=== PATIENT | female | born 2000 ===

== ENCOUNTER 2018-11-09 23:56 | Emergency (ER) | payer BC ==
[2018-11-10] MEDS ORDERED: NS 0.9% 1000 ML** 1,000 ML IV ONE
[2018-11-10] MEDS ORDERED: Ondansetron INJ* 2 MG/ML VIAL IV ONE
[2018-11-10] MEDS ORDERED: Ondansetron INJ* 2 MG/ML VIAL ONE (00:02)
--- NOTE | 2018-11-10 01:18 | ED ---
Substance Abuse/Use - HPI Summary HPI Summary: This patient is a 18 year old female brought in by ambulance to [facility] with a chief complaint of EtOH intoxication. Patient states that she was drinking red wine tonight. Patient is intoxicated and presents with vomit on her lips. Patient additionally reports nausea, vomiting. Level 5 Caveat: AMS - History Of Current Complaint Chief Complaint: EDSubstanceAbuse Stated Complaint: ETOH Time Seen by Provider: 11/10/18 00:01 Hx Obtained From: Patient, EMS Hx From Patient Unobtainable Due To: Altered Mental Status Ingestion History: Type/Name Of Drug - EtOH Timing Of Abuse: Binge Use Severity Initially: Moderate Character: Stuporous Associated Signs And Symptoms: Nausea, Vomiting - Allergies/Home Medications Allergies/Adverse Reactions: Allergies Allergy/AdvReac Type Severity Reaction Status Date / Time No Known Allergies Allergy Verified 11/10/18 00:29 Home Medications: Home Medications Fluoxetine HCl 25 mg PO DAILY 11/10/18 [History Confirmed 11/10/18] PMH/Surg Hx/FS Hx/Imm Hx Previously Healthy: Yes - PMHx limited by Level 5 Caveat: AMS Opthamlomology History: Denies: Hx Legally Blind EENT History: Denies: Hx Deafness Infectious Disease History: Unable to Obtain/Confirm Infectious Disease History: Denies: Traveled Outside the [place] in Last 30 Days - Family History Known Family History: Negative: Hypertension - Social History Occupation: Student Alcohol Use: Occasionally Substance Use Type: Reports: None Smoking Status (MU): Never Smoked Tobacco Review of Systems Negative: Fever Positive: Vomiting, Nausea All Other Systems Reviewed And Are Negative: No - Comments Additional Review of Systems Comments: ROS limited by Level 5 Caveat: AMS Physical Exam - Summary Physical Exam Summary: Appearance: Well-appearing, Well-nourished, lying in bed comfortable Skin: Warm, dry, no obvious rash Eyes: sclera anicteric, no conjunctival pallor ENT: mucous membranes moist Neck: deferred Respiratory: No signs of respiratory distress Cardiovascular: Appears well perfused, pulses are nml Physical Exam limited by Level 5 Caveat: AMS Triage Information Reviewed: Yes Vital Signs On Initial Exam: Initial Vitals Temp Pulse Resp BP Pulse Ox 97.4 F 95 20 113/72 100 11/10/18 00:03 11/10/18 00:03 11/10/18 00:03 11/10/18 00:03 11/10/18 00:03 Vital Signs Reviewed: Yes Completion Of Physical Exam Limited Due To: Altered Mental Status, Level 5 Diagnostics - Vital Signs Vital Signs Temp Pulse Resp BP Pulse Ox 11/10/18 00:03 97.4 F 95 20 113/72 100 - Laboratory Lab Statement: Any lab studies that have been ordered have been reviewed, and results considered in the medical decision making process. Course/Dx - Course Course Of Treatment: This patient is a 18 year old female brought in by ambulance to [facility] with a chief complaint of EtOH intoxication. Patient states that she was drinking red wine tonight. Patient is intoxicated and presents with vomit on her lips. Patient additionally reports nausea, vomiting. In the ED course the patient was given NS 0.9% bolus IV, Zofran. Patient will be discharged with a dx of alcohol intoxication. The patient is agreeable with this plan. - Diagnoses Provider Diagnoses: Alcohol intoxication Discharge - Sign-Out/Discharge Documenting (check all that apply): Patient Departure Patient Received Moderate/Deep Sedation with Procedure: No - Discharge Plan Condition: Improved Disposition: HOME Patient Education Materials: Alcohol Intoxication (ED) Referrals: No Primary Care Phys,NOPCP [Primary Care Provider] - - Billing Disposition and Condition Condition: IMPROVED Disposition: Home - Attestation Statements Document Initiated by Pamelaiblaura: Yes Documenting Pamelaibe: Mindy Haddad Provider For Whom Nargis is Documenting (Include Credential): Manolo Baez MD Scriblaura Attestation: Mindy Beasley scribed for Manolo Baez MD on 11/12/18 at 1302. Scribe Documentation Reviewed: Yes Provider Attestation: The documentation as recorded by the Mindy tracy accurately reflects the service I personally performed and the decisions made by me, Manolo Baez MD Status of Scriblaura Document: Viewed
[2018-11-10 06:26] VITALS: BP 101/67
== END 2018-11-10 06:25 | disposition home or self-care (01) ==
LOC: ED 23:56
DX: F10.129 Alcohol abuse with intoxication, unspecified (principal); R11.2 Nausea with vomiting, unspecified
CPT/HCPCS: 96374; 99284; J2405